=== PATIENT | male | born 1985 | race African-American/Black ===

== ENCOUNTER 2016-11-14 06:35 | Emergency (ER) | payer OTHER ==
[2016-11-14] MEDS ORDERED: Ondansetron ODT 4 MG TAB ONE (07:05)
--- NOTE | 2016-11-14 07:34 | ERRECORD ---
[facility] EMERGENCY RECORD HPI NAUSEA/VOMITING/DIARRHEA (07:10 [facility]) CHIEF COMPLAINT: Patient presents for evaluation of nausea, Patient presents for evaluation of vomiting, Patient presents for evaluation of diarrhea. HISTORIAN: History provided by patient, per patient ate chicken last night / with nausea/ vomiting x 2 / diarrhea after / some stomach cramps/ no fever or chills. LOCATION MALE: Unable to localize symptoms. QUALITY: Pain is dull in nature, described as cramping. SEVERITY: Maximum severity of symptoms mild, Currently symptoms are mild. TIME COURSE: Sudden onset of symptoms, Symptoms are improving. ASSOCIATED WITH MALE: No associated recent antibiotic use, No associated bright red blood per rectum, No associated chills, Associated with diarrhea, No associated fever, No associated flank pain, No associated genital discharge, No associated hematospermia, No associated hematuria, No associated loss of appetite, No associated melena, Associated with nausea, No associated inability to tolerate oral intake, Associated with vomiting. EXACERBATED BY: Patient's condition exacerbated by food. RELIEVED BY: Patient's condition relieved by nothing because patient has not tried anything for relief. ROS (07:12 [facility]) CONSTITUTIONAL: Negative constitutional review of systems, Historian denies chills, denies fever. ENT: Negative ears, nose, throat review of systems, Historian denies rhinorrhea, denies sore throat. CARDIOVASCULAR: Negative cardiovascular review of systems, Historian denies chest pain, denies palpitations. RESPIRATORY: Negative respiratory review of systems, Historian denies cough, denies shortness of breath. GI: Historian reports abdominal pain, reports diarrhea, reports nausea, reports vomiting. MUSCULOSKELETAL: Negative musculoskeletal review of systems, Historian denies back pain, denies fall, denies injury, denies neck pain. SKIN: Negative skin review of systems, Historian denies rash, denies skin changes. NEUROLOGIC: Negative neurologic review of systems, Historian denies headache. PAST MEDICAL HISTORY (06:44 [facility]) MEDICAL HISTORY: Tetanus not up to date, No past medical history. MALE SURGICAL HISTORY: Patient has no surgical history,. PSYCHIATRIC HISTORY: No previous psychiatric history. SOCIAL HISTORY: Lives at home, alone, Patient denies alcohol &a-1R&a+25V*p+0X*l2534A*c202B*c15G*c2P*p-0X&a-25V&a+1R Name: Yared Plasencia : 1985 M31 MedRec: [id number] AcctNum: [id number] Prepared: Jessica Nov 14, 2016 09:16 by Interface Page 1 of 3 pMD [facility] EMERGENCY RECORD use, Patient denies drug use, Patient has no smoking history . KNOWN ALLERGIES nka (Unconfirmed) No Known Allergies CURRENT MEDICATIONS (06:42 [facility]) None VITAL SIGNS (06:39 [facility]) VITAL SIGNS: BP: 122/79, Pulse: 57, Resp: 20, Temp: 97.5 (Oral), Pain: 9 (Constant), O2 sat: 99 on Room Air, Time: 11/14/2016 06:39. PHYSICAL EXAM (07:12 [facility]) CONSTITUTIONAL: Vital signs reviewed, Patient afebrile, Pulse normal, Blood pressure normal, Respiratory rate normal, Patient appears non toxic, Patient appears pain free, Patient alert and oriented to person, place and time. NECK: Neck exam normal, Neck exam included findings of normal range of motion, Trachea midline, no meningeal signs, no cervical adenopathy, no tenderness. RESPIRATORY CHEST: Respiratory and chest exam normal, Respiratory exam included findings of no respiratory distress, Breath sounds clear. CARDIOVASCULAR: Cardiovascular assessment normal, Cardiovascular exam included findings of heart rate regular rate and rhythm, Heart sounds normal. ABDOMEN MALE: Abdominal exam included findings of abdomen tender, to the epigastric region, mild intensity, Bowel sounds normal, no distension, no mass, no pulsatile masses, no peritoneal signs, no rigidity, no guarding, no rebound, Rovsing's sign absent. BACK: Back exam normal, Back exam included findings of normal inspection, range of motion normal, no tenderness. NEURO: Neuro exam normal, Neuro exam findings include patient oriented to person, place and time, Speech normal, Gait normal. SKIN: Skin exam normal, Skin exam included findings of skin warm, dry, and normal in color, no rash. MEDICATION ADMINISTRATION SUMMARY Drug Name: *Zofran ODT, Dose Ordered: 4 mg, Route: Oral, Status: Given, Time: 07:08 11/14/2016, *Additional information available in notes, Detailed record available in Medication Service section. DOCTOR NOTES (07:13 [facility]) RE-EVALUATION: The patient's condition has improved. TEXT: 31 yo M no PMHx with nvd after eating chicken given Zofran/ tolerates po &a-1R&a+25V*p+0X*[id number]*c202B*c15G*c2P*p-0X&a-25V&a+1R Name: Yared Plasencia : 1985 11 MedRec: [id number] AcctNum: [id number] Prepared: Jessica Nov 14, 2016 09:16 by Interface Page 2 of 3 pMD [facility] EMERGENCY RECORD d/c home with nausea meds/ follow up with pcp. PATIENT STATUS: Patient has improved since arrival to emergency department. PATIENT PLAN: The patient will be discharged, The patient will follow up with primary care physician. DATA REVIEWED: Discussed with family. PROBLEM LIST No recorded problems DIAGNOSIS (07:14 [facility]) FINAL: PRIMARY: viral gastroenteritis. PRESCRIPTION (07:15 [facility]) Zofran ODT: TABLET,DISINTEGRATING : 4 mg : ORAL : Quantity: 1 Unit: tab(s) Route: ORAL Schedule: every 8 hours PRN Dispense: 15 Unit: tab(s) May substitute. Refills: No Refills . NOTES: No Refills. DISPOSITION PATIENT: Disposition Type: Discharge, Disposition: *Discharge Home. (07:14 [facility]) Patient left the department. (07:30 [facility]) Garcia: [facility]AL[facility]=CHRISTOPHER Wilkins, Jade [facility]=MD Claudette, Indira [facility]=CHRISTOPHER Humphreys, Anitha &a-1R&a+25V*p+0X*[id number]*c202B*c15G*c2P*p-0X&a-25V&a+1R Name: Yared Plasencia : 1985 [facility] MedRec: [id number] AcctNum: [id number] Prepared: Jessica Nov 14, 2016 09:16 by Interface Page 3 of 3 pMD MTDD
--- NOTE | 2016-11-14 07:39 | PICIS ---
[facility] EMERGENCY RECORD TRIAGE (FriNov 14, 2016 06:41 [facility]) TRIAGE NOTES: Stomachache started yesterday morning. States vomiting 2x this AM, little bit of diarrhea. (FriNov 14, 2016 06:41 [facility]) PATIENT: NAME: Yared Plasencia, AGE: 31, GENDER: male, : Sat 1985, TIME OF GREET: FriNov 14, 2016 06:36, PREFERRED LANGUAGE: Singaporean, ETHNICITY: Not or , ECODE BILLING MAP: [facility] ER, SSN: [id number], Zip Code: [address], KG WEIGHT: 65.77, PHONE: , , , PERSON ID: [id number], PCP: None. (FriNov 14, 2016 06:41 [facility]) COMPLAINT: STOMACH PAIN. (FriNov 14, 2016 06:41 [facility]) ADMISSION: URGENCY: 3 Urgent, ADMISSION SOURCE: Home, TRANSPORT: CAR, BED: ER -02. (FriNov 14, 2016 06:41 [facility]) PAIN: Patient complains of pain described as, aching, cramping, on a scale 0-10 patient rates pain as 9, Location mid abdomen, Pain is constant, Onset was 11/13/2016, No aggravating factors, No relieving factors, Notes: Tried pepto tablet this morning around 5 am. (06:44 [facility]) SIRS SCORING: Heart Rate 55-109 (0), Temp range 96.8-101.1 (0), respiratory rate 12-24 (0), Mental Status altered: no (0). (06:44 [facility]) TRIAGE SCREENING: Patient denies suicidal ideation, Patient denies presence of domestic violence. (06:44 [facility]) TREATMENTS IN PROGRESS: Treatments given Prehospital: Pepto at 0500. (06:44 [facility]) PROVIDERS: TRIAGE NURSE: Jade Wilkins RN. (FriNov 14, 2016 06:41 [facility]) VITAL SIGNS: BP 122/79, Pulse 57, Resp 20, Temp 97.5, (Oral), Pain 9, (Constant), O2 Sat 99, on Room Air, Time 11/14/2016 06:39. (06:39 [facility]) PREVIOUS VISIT ALLERGIES: No Known Allergies. (FriNov 14, 2016 06:41 [facility]) No Known Allergies. (06:44 [facility]) KNOWN ALLERGIES nka (Unconfirmed) No Known Allergies CURRENT MEDICATIONS (06:42 [facility]) None VITAL SIGNS (06:39 [facility]) VITAL SIGNS: BP: 122/79, Pulse: 57, Resp: 20, Temp: 97.5 (Oral), Pain: 9 (Constant), O2 sat: 99 on Room Air, Time: 11/14/2016 06:39. NURSING ASSESSMENT: ABDOMEN (06:46 [facility]) CONSTITUTIONAL: Patient arrives ambulatory, Gait steady, History obtained from patient, Patient appears comfortable, Patient &a-1R&a+25V*p+0X*x1010Q*c202B*c15G*c2P*p-0X&a-25V&a+1R Name: Yared Plasencia : 1985 M31 MedRec: [id number] AcctNum: [id number] Prepared: FriNov 14, 2016 09:21 by Interface Page 1 of [address] [facility] EMERGENCY RECORD cooperative, Patient alert, Oriented to person, place and time, Skin warm, Skin dry, Skin normal in color, Mucous membranes pink, Mucous membranes moist, Patient complains of Stomachache, Stomachache started yesterday morning. States vomiting 2x this AM, "little bit of diarrhea" Denies ill contacts. ABDOMEN: Abdomen assessment findings include abdomen symmetrical, Abdomen soft, tender, diffusely, Associated with nausea, Associated with vomiting, history of vomiting, Number of times: 2, vomiting yellow fluid, Associated with diarrhea, watery, Number of episodes: 2. SAFETY: Side rails up, Cart/Stretcher in lowest position, Call light within reach, Hospital ID band on. NURSING PROCEDURE: DISCHARGE NOTE (07:28 [facility]) DISCHARGE: Patient discharged to home, ambulating without assistance, driving self, unaccompanied, Discharge instructions given to patient, Simple or moderate discharge teaching performed, by CHRISTOPHER Welsh, Patient treated and evaluated by physician. BELONGINGS: Belongings and valuables with patient upon arrival to the Emergency Department include:, Belongings and valuables with patient at time of discharge include:. SAFETY: Side rails up, Cart/Stretcher in lowest position, Call light within reach, Hospital ID band on. NURSING PROCEDURE: PO CHALLENGE (07:09 [facility]) PO CHALLENGE: Oral fluid challenge indicated for follow up on anti-emetics given, Oral challenge performed, patient given water, amount (mL) 300. FOLLOW-UP: After procedure, patient tolerated oral challenge. SAFETY: Side rails up, Cart/Stretcher in lowest position, Call light within reach, Hospital ID band on. MEDICATION ADMINISTRATION SUMMARY Drug Name: *Zofran ODT, Dose Ordered: 4 mg, Route: Oral, Status: Given, Time: 07:08 11/14/2016, *Additional information available in notes, Detailed record available in Medication Service section. MEDICATION SERVICE (07:08 [facility]) Zofran ODT: Order: Zofran ODT (ondansetron) - Dose: 4 mg : Oral Schedule: Now Notes: Read back and verified, Verbal Order Ordered by: Indira Wilkins MD Entered by: Anitha Humphreys RN [facility] Nov 14, 2016 07:08 Documented as given by: Anitha Humphreys RN [facility] Nov 14, 2016 07:08 Patient, Medication, Dose, Route and Time verified prior to administration. Amount given: 4 mg, Site: Medication administered S.L., Correct &a-1R&a+25V*p+0X*o8468Q*c202B*c15G*c2P*p-0X&a-25V&a+1R Name: Yared Plasencia : 1985 M31 MedRec: [id number] AcctNum: [id number] Prepared: Jessica Nov 14, 2016 09:21 by Interface Page 2 of [address] [facility] EMERGENCY RECORD patient, time, route, dose and medication confirmed prior to administration, Patient advised of actions and side-effects prior to administration, Allergies confirmed and medications reviewed prior to administration, Patient tolerated procedure well, Administered by CHRISTOPHER Welsh, Patient in position of comfort, Side rails up, Cart in lowest position, Call light in reach. HPI NAUSEA/VOMITING/DIARRHEA (07:10 [facility]) CHIEF COMPLAINT: Patient presents for evaluation of nausea, Patient presents for evaluation of vomiting, Patient presents for evaluation of diarrhea. HISTORIAN: History provided by patient, per patient ate chicken last night / with nausea/ vomiting x 2 / diarrhea after / some stomach cramps/ no fever or chills. LOCATION MALE: Unable to localize symptoms. QUALITY: Pain is dull in nature, described as cramping. SEVERITY: Maximum severity of symptoms mild, Currently symptoms are mild. TIME COURSE: Sudden onset of symptoms, Symptoms are improving. ASSOCIATED WITH MALE: No associated recent antibiotic use, No associated bright red blood per rectum, No associated chills, Associated with diarrhea, No associated fever, No associated flank pain, No associated genital discharge, No associated hematospermia, No associated hematuria, No associated loss of appetite, No associated melena, Associated with nausea, No associated inability to tolerate oral intake, Associated with vomiting. EXACERBATED BY: Patient's condition exacerbated by food. RELIEVED BY: Patient's condition relieved by nothing because patient has not tried anything for relief. ROS (07:12 [facility]) CONSTITUTIONAL: Negative constitutional review of systems, Historian denies chills, denies fever. ENT: Negative ears, nose, throat review of systems, Historian denies rhinorrhea, denies sore throat. CARDIOVASCULAR: Negative cardiovascular review of systems, Historian denies chest pain, denies palpitations. RESPIRATORY: Negative respiratory review of systems, Historian denies cough, denies shortness of breath. GI: Historian reports abdominal pain, reports diarrhea, reports nausea, reports vomiting. MUSCULOSKELETAL: Negative musculoskeletal review of systems, Historian denies back pain, denies fall, denies injury, denies neck pain. SKIN: Negative skin review of systems, Historian denies rash, denies skin changes. NEUROLOGIC: Negative neurologic review of systems, Historian denies headache. &a-1R&a+25V*p+0X*y2840P*c202B*c15G*c2P*p-0X&a-25V&a+1R Name: Yared Plasencia : 1985 M31 MedRec: [id number] AcctNum: [id number] Prepared: Jessica Nov 14, 2016 09:21 by Interface Page 3 of [address] [facility] EMERGENCY RECORD PAST MEDICAL HISTORY (06:44 [facility]) MEDICAL HISTORY: Tetanus not up to date, No past medical history. MALE SURGICAL HISTORY: Patient has no surgical history,. PSYCHIATRIC HISTORY: No previous psychiatric history. SOCIAL HISTORY: Lives at home, alone, Patient denies alcohol use, Patient denies drug use, Patient has no smoking history . PHYSICAL EXAM (07:12 [facility]) CONSTITUTIONAL: Vital signs reviewed, Patient afebrile, Pulse normal, Blood pressure normal, Respiratory rate normal, Patient appears non toxic, Patient appears pain free, Patient alert and oriented to person, place and time. NECK: Neck exam normal, Neck exam included findings of normal range of motion, Trachea midline, no meningeal signs, no cervical adenopathy, no tenderness. RESPIRATORY CHEST: Respiratory and chest exam normal, Respiratory exam included findings of no respiratory distress, Breath sounds clear. CARDIOVASCULAR: Cardiovascular assessment normal, Cardiovascular exam included findings of heart rate regular rate and rhythm, Heart sounds normal. ABDOMEN MALE: Abdominal exam included findings of abdomen tender, to the epigastric region, mild intensity, Bowel sounds normal, no distension, no mass, no pulsatile masses, no peritoneal signs, no rigidity, no guarding, no rebound, Rovsing's sign absent. BACK: Back exam normal, Back exam included findings of normal inspection, range of motion normal, no tenderness. NEURO: Neuro exam normal, Neuro exam findings include patient oriented to person, place and time, Speech normal, Gait normal. SKIN: Skin exam normal, Skin exam included findings of skin warm, dry, and normal in color, no rash. EVENTS TRANSFER: Triage to Emergency Emergency Room -02. (FriNov 14, 2016 06:41 [facility]) Removed from Emergency Emergency Room -02. (07:30 [facility]) DOCTOR NOTES (07:13 [facility]) RE-EVALUATION: The patient's condition has improved. TEXT: 31 yo M no PMHx with nvd after eating chicken given Zofran/ tolerates po d/c home with nausea meds/ follow up with pcp. PATIENT STATUS: Patient has improved since arrival to emergency department. PATIENT PLAN: The patient will be discharged, The patient will &a-1R&a+25V*p+0X*h0475W*c202B*c15G*c2P*p-0X&a-25V&a+1R Name: Yared Plasencia : 1985 M31 MedRec: [id number] AcctNum: [id number] Prepared: FriNov 14, 2016 09:21 by Interface Page 4 of [address] [facility] EMERGENCY RECORD follow up with primary care physician. DATA REVIEWED: Discussed with family. PROBLEM LIST No recorded problems DIAGNOSIS (07:14 [facility]) FINAL: PRIMARY: viral gastroenteritis. DISPOSITION PATIENT: Disposition Type: Discharge, Disposition: *Discharge Home. (07:14 [facility]) Patient left the department. (07:30 [facility]) INSTRUCTION (07:16 [facility]) DISCHARGE: VIRAL GASTROENT 8 YR ADULT. SPECIAL: take nausea medications as needed increase fluid intake Follow-up with your primary physician as needed. PRESCRIPTION (07:15 [facility]) Zofran ODT: TABLET,DISINTEGRATING : 4 mg : ORAL : Quantity: 1 Unit: tab(s) Route: ORAL Schedule: every 8 hours PRN Dispense: 15 Unit: tab(s) May substitute. Refills: No Refills . NOTES: No Refills. IMAGING *DISCHARGE INSTRUCTIONS RECEIPT: Image captured from scanner. (07:31 [facility]) *SUPPLY CHARGE SHEET: Image captured from scanner. (07:32 [facility]) ADMIN (09:12 [facility]) DIGITAL SIGNATURE: MD Claudette, Indira. Garcia: [facility]=CHRISTOPHER Wilkins, Jade [facility]=MD Claudette, Indira [facility]=CHRISTOPHER Humphreys, Anitha &a-1R&a+25V*p+0X*m8970Z*c202B*c15G*c2P*p-0X&a-25V&a+1R Name: Yared Plasencia : 1985 M31 MedRec: [id number] AcctNum: [id number] Prepared: FriNov 14, 2016 09:21 by Interface Page 5 of 5 pMD MTDD
== END 2016-11-14 07:30 | disposition home or self-care (01) ==
LOC: NAV ERS 06:35
DX: A08.4 Viral intestinal infection, unspecified (principal)
CPT/HCPCS: 99283; Q0162

== ENCOUNTER 2016-11-18 09:10 | Emergency (ER) | payer OTHER ==
[2016-11-18] MEDS ORDERED: Ibuprofen 200 MG TAB ONE (09:40)
[2016-11-18] MEDS ORDERED: Acetaminophen 325 MG TAB ONE (09:40)
[2016-11-18] MEDS ORDERED: Amoxicillin/Potassium Clav 875 MG TAB ONE (10:17)
--- NOTE | 2016-11-18 13:18 | PICIS ---
[facility] EMERGENCY RECORD TRIAGE (FriNov 18, 2016 09:15 MSPE) TRIAGE NOTES: chills, cough, congestion; onset two days ago. (FriNov 18, 2016 09:15 MSPE) PATIENT: NAME: Yared Plasencia, AGE: 31, GENDER: male, : Sat 1985, TIME OF GREET: FriNov 18, 2016 09:11, PREFERRED LANGUAGE: Albanian, ETHNICITY: Not or , ECODE BILLING MAP: [facility], SSN: [id number], Zip Code: [address], KG WEIGHT: 66.22, PHONE: , , , PERSON ID: [id number], PCP: none. (FriNov 18, 2016 09:15 MSPE) COMPLAINT: COUGH,CONGESTION. (FriNov 18, 2016 09:15 MSPE) ADMISSION: URGENCY: 4 Non Urgent, ADMISSION SOURCE: Home, TRANSPORT: CAR, BED: ER -03. (FriNov 18, 2016 09:15 MSPE) SIRS SCORING: Heart Rate 55-109 (0), Temp range 96.8-101.1 (0), respiratory rate 12-24 (0), Mental Status altered: no (0), Total SIRS Score 0. (09:18 MSPE) TREATMENTS IN PROGRESS: Treatments given Prehospital: none. (09:18 MSPE) PROVIDERS: TRIAGE NURSE: Ileana Espinosa RN. (FriNov 18, 2016 09:15 MSPE) VITAL SIGNS: BP 118/68, Pulse 99, Resp 18, Temp 100.5, (Oral), Pain 7, O2 Sat 96, on Room Air, Time 11/18/2016 09:15. (09:15 MSPE) PREVIOUS VISIT ALLERGIES: No Known Allergies. (FriNov 18, 2016 09:15 MSPE) No Known Allergies. (09:18 MSPE) KNOWN ALLERGIES nka (Unconfirmed) No Known Allergies (Unconfirmed) No Known Drug Allergies CURRENT MEDICATIONS (09:15 MSPE) None VITAL SIGNS VITAL SIGNS: BP: 118/68, Pulse: 99, Resp: 18, Temp: 100.5 (Oral), Pain: 7, O2 sat: 96 on Room Air, Time: 11/18/2016 09:15. (09:15 MSPE) BP: 122/75, Pulse: 93, Resp: 18, Temp: 98.9 (Oral), Pain: 6, O2 sat: 96 on Room Air, Time: 11/18/2016 10:21. (10:21 MSPE) NURSING ASSESSMENT: RESPIRATORY /CHEST (09:19 MSPE) CONSTITUTIONAL: Patient arrives ambulatory, Gait steady, History obtained from patient, Patient appears, generally ill, Patient cooperative, Patient alert. PAIN: aching pain, body aches. RESPIRATORY/CHEST: Respiratory assessment findings include respiratory effort easy, Respirations regular, Conversing normally, Associated with cough, productive of, green sputum. ENT: Discharge, watery, Notes: sts &a-1R&a+25V*p+0X*[id number]*c202B*c15G*c2P*p-0X&a-25V&a+1R Name: Yared Plasencia : 1985 M31 MedRec: [id number] AcctNum: [id number] Prepared: FriNov 18, 2016 12:25 by Interface Page 1 of 6 pMD [facility] EMERGENCY RECORD vomited x 2 since onset of sx; slight sore throat. NURSING PROCEDURE: DISCHARGE NOTE (10:25 MSPE) DISCHARGE: Patient discharged to home, ambulating without assistance, family driving, Summary of Care printed/ provided, Discharge instructions given to patient, Simple or moderate discharge teaching performed, Prescriptions given and instructions on side effects given, Above person(s) verbalized understanding of discharge instructions and follow-up care, Patient treated and evaluated by physician. BELONGINGS: Belongings remain with patient. NOTES: Notes: Tolerating PO fluids at time of DC. ORDER DETAILS Order Name: Influenza A&B Ag Screen, Status: Active, Time: 09:27 11/18/2016, User: ANA, - Ordered for: MD Marcos Andrea, - Entered by: CHRISTOPHER Espinosa Marilyn - FriNov 18, 2016 09:27, - Quantity: 1. MEDICATION ADMINISTRATION SUMMARY Drug Name: Augmentin, Dose Ordered: 875 mg, Route: Oral, Status: Given, Time: 10:20 11/18/2016, Drug Name: ibuprofen, Dose Ordered: 600 mg, Route: Oral, Status: Given, Time: 09:42 11/18/2016, Drug Name: Tylenol, Dose Ordered: 650 mg, Route: Oral, Status: Given, Time: 09:41 11/18/2016, Detailed record available in Medication Service section. MEDICATION SERVICE Augmentin: Order: Augmentin (amoxicillin trihydrate/potassium clavulanate) - Dose: 875 mg : Oral Ordered by: Gilbert Marcos MD Entered by: Gilbert Marcos MD FriNov 18, 2016 10:08 , Acknowledged by: Ileana Espinosa RN FriNov 18, 2016 10:16 Documented as given by: Ileana Espinosa RN FriNov 18, 2016 10:20 Patient, Medication, Dose, Route and Time verified prior to administration. Amount given: 1 tab, Site: Medication administered P.O., Patient appears Awake and alert- acceptable, Correct patient, time, route, dose and medication confirmed prior to administration, Patient advised of actions and side-effects prior to administration, Allergies confirmed and medications reviewed prior to administration, Patient in position of comfort, Side rails up, Cart in lowest position. ibuprofen: Order: ibuprofen - Dose: 600 mg : Oral Ordered by: Gilbert Marcos MD Entered by: Gilbert Marcos MD FriNov 18, 2016 09:31 , &a-1R&a+25V*p+0X*h2371R*c202B*c15G*c2P*p-0X&a-25V&a+1R Name: Yared Plasencia : 1985 M31 MedRec: [id number] AcctNum: [id number] Prepared: FriNov 18, 2016 12:25 by Interface Page 2 of 6 pMD [facility] EM[facility]GENC[facility] RECORD Acknowledged by: Ileana Espinosa RN FriNov 18, 2016 09:40 Documented as given by: Ileana Espinosa RN FriNov 18, 2016 09:42 Patient, Medication, Dose, Route and Time verified prior to administration. Amount given: 600mg, Site: Medication administered P.O., Patient appears Awake and alert- acceptable, Correct patient, time, route, dose and medication confirmed prior to administration, Patient advised of actions and side-effects prior to administration, Allergies confirmed and medications reviewed prior to administration, Patient in position of comfort, Side rails up, Cart in lowest position. Tylenol: Order: Tylenol (acetaminophen) - Dose: 650 mg : Oral Ordered by: Gilbert Marcos MD Entered by: Gilbert Marcos MD FriNov 18, 2016 09:31 , Acknowledged by: Ileana Espinosa RN FriNov 18, 2016 09:40 Documented as given by: Ileana Espinosa RN FriNov 18, 2016 09:41 Patient, Medication, Dose, Route and Time verified prior to administration. Amount given: 650mg, Site: Medication administered P.O., Patient appears Awake and alert- acceptable, Correct patient, time, route, dose and medication confirmed prior to administration, Patient advised of actions and side-effects prior to administration, Allergies confirmed and medications reviewed prior to administration, Patient in position of comfort, Side rails up, Cart in lowest position. HPI FEVER (09:31 AGRE) CHIEF COMPLAINT: Patient presents for evaluation of fever. HISTORIAN: History provided by patient, FEVER, CHILLS, COUGH PRODUCTIVE OF GREEN PHLEGM FOR 2 DAYS. BODY ACHES. NO ELLIS. HAS SORE THROAT ONLY WITH COUGHING. NO CHEST PAIN OR SOB. DENIES SICK CONTACTS. LOCATION: No localizing symptoms. QUALITY: Pain is dull in nature, described as aching, described as throbbing. SEVERITY: Maximum severity of symptoms moderate, Currently symptoms are moderate. TIME COURSE: Sudden onset of symptoms, Symptoms are worsening. ASSOCIATED WITH: No associated abdominal pain, Associated with chills, Associated with cough, No associated diarrhea, No associated headache, No associated infectious exposure, Associated with myalgias, Associated with sore throat, Associated with upper respiratory infection, No associated urinary tract infection signs or symptoms, No associated vomiting. EXACERBATED BY: Patient's condition exacerbated by nothing. RELIEVED BY: Patient's condition relieved by nothing. ROS (09:33 AGRE) CONSTITUTIONAL: Historian reports chills, reports &a-1R&a+25V*p+0X*e1023N*c202B*c15G*c2P*p-0X&a-25V&a+1R Name: Yared Plasencia : 1985 M31 MedRec: [id number] AcctNum: [id number] Prepared: FriNov 18, 2016 12:25 by Interface Page 3 of 6 pMD [facility] EMERG[facility] RECORD fever, reports malaise, denies weakness. EYES: Historian denies eye redness, denies vision changes. ENT: Historian reports rhinorrhea, reports sore throat, denies stridor. CARDIOVASCULAR: Historian denies chest pain, denies diaphoresis. RESPIRATORY: Historian reports cough, denies shortness of breath, reports sputum, denies stridor, denies wheezing. GI: Historian denies abdominal pain, denies nausea, denies vomiting. MUSCULOSKELETAL: Historian denies back pain, denies neck pain. SKIN: Historian denies skin changes, denies skin lesions. NEUROLOGIC: Historian denies confusion, denies dizziness, denies focal weakness, denies headache. HEMO/LYMPHATIC: Normal hematologic/lymphatic system review, Historian denies petechiae. PSYCHIATRIC: Negative psychiatric review of systems, Historian denies anxiety. PAST MEDICAL HISTORY (09:18 MSPE) MEDICAL HISTORY: No past medical history, Flu vaccine not up to date, Tetanus not up to date, Pneumococcal vaccine not up to date. MALE SURGICAL HISTORY: Patient has no surgical history. PSYCHIATRIC HISTORY: No previous psychiatric history. SOCIAL HISTORY: Patient denies alcohol use, Patient denies drug use, Patient has no smoking history. PHYSICAL EXAM (09:34 AGRE) CONSTITUTIONAL: Vital signs reviewed, Patient febrile, Respiratory rate normal, Patient appears non toxic, Patient appears pain free, Patient alert and oriented to person, place and time, NURSES NOTES REVIEWED. HEAD: Head exam included findings of head atraumatic, normocephalic. EYES: Pupils equally round and reactive to light, Eye exam included findings of eyelids normal to inspection, Extraocular muscles intact, Conjunctiva normal, Sclera normal. ENT: Ear exam included findings of, left external ear normal, right external ear normal, tympanic membrane with bulging on the left, tympanic membrane injected on the left, tympanic membrane injected on the right, Nose exam normal, Pharynx, injected bilaterally, no swelling, symmetrical, Uvula exam normal, midline, no edema, Tonsil exam normal, not enlarged, no exudates, Mouth exam normal. NECK: Neck exam normal, Neck exam included findings of normal range of motion, no meningeal signs, Cervical adenopathy, diffuse, tender. RESPIRATORY CHEST: Respiratory and chest exam normal, Respiratory exam included findings of no respiratory distress, Breath sounds &a-1R&a+25V*p+0X*e6316C*c202B*c15G*c2P*p-0X&a-25V&a+1R Name: Yared Plasencia : 1985 M31 MedRec: [id number] AcctNum: [id number] Prepared: FriNov 18, 2016 12:25 by Interface Page 4 of 6 pMD [facility] EMERGENC[facility] RECORD clear, No wheezing, No rales, No rhonchi, Breath sounds not diminished. CARDIOVASCULAR: Cardiovascular exam included findings of heart rate regular rate and rhythm, Heart sounds normal, normal S1, normal S2, no murmurs, no rub, no gallop. ABDOMEN MALE: Abdominal exam normal, Abdominal exam included findings of abdomen nontender, Bowel sounds normal, Liver normal, Spleen normal, no distension, no mass. BACK: Back exam normal, Back exam included findings of normal inspection, range of motion normal. UPPER EXTREMITY: Upper extremity exam included findings of inspection normal, Range of motion normal. LOWER EXTREMITY: Lower extremity exam included findings of inspection normal, Range of motion normal. NEURO: Neuro exam normal, Neuro exam findings include patient oriented to person, place and time, Speech normal, Gait normal, Memory normal, Cranial nerves intact, no focal motor deficits. SKIN: Skin exam normal, Skin exam included findings of skin warm, dry, and normal in color. LYMPHATIC: Lymphatic exam normal, Lymphatic exam included findings of cervical nodes normal. PSYCHIATRIC: Psychiatric exam normal, Normal affect. LAB INTERPRETATION (12:19 AGRE) INTERPRETATION: Influenza negative. EVENTS TRANSFER: Triage to Emergency Emergency Room -03. (09:15 MSPE) Removed from Emergency Emergency Room -03. (10:28 MSPE) DOCTOR NOTES (12:19 AGRE) TEXT: DISCUSSED WITH PATIENT FINDINGS ON EXAM, RESULTS OF ED TEST, MANAGEMENT OF HIS INFECTION, CONGESTION AND FEVER. NEED FOR FOLLOW UP. HE EXPRESSED UNDERSTANDING AND AGREEMENT WITH THIS PLAN. PATIENT STATUS: Patient has improved since arrival to emergency department. PATIENT PLAN: The patient will be discharged. DATA REVIEWED: Lab data reviewed. PROBLEM LIST No recorded problems DIAGNOSIS (10:03 AGRE) FINAL: PRIMARY: ACUTE SINUSITIS UNSPECIFIED, ADDITIONAL: Fever, Otitis Media - Bilateral. DISPOSITION PATIENT: Disposition Type: Discharge, Disposition: *Discharge Home, Condition: Improved. (10:03 AGRE) &a-1R&a+25V*p+0X*u0862H*c202B*c15G*c2P*p-0X&a-25V&a+1R Name: Yared Plasencia : 1985 M31 MedRec: [id number] AcctNum: [id number] Prepared: FriNov 18, 2016 12:25 by Interface Page 5 of 6 pMD [facility] EMERGENCY RECORD Patient left the department. (10:28 MSPE) INSTRUCTION (10:05 AGRE) DISCHARGE: EARACHE WITH INFECTION OTITIS MEDIA ABX TX ADULT, SINUSITIS, ABX TX, FEVER CONTROL (ADULT). SPECIAL: START YOUR ANTIBIOTICS TODAY. TAKE TYLENOL 650 MG EVERY 4 HOURS AND MOTRIN 600 MG EVERY 6 HOURS TO CONTROL YOUR FEVER. TAKE NYQUIL NIGHT TIME COUGH AND COLD PREPARATION TO CONTROL COUGH AND CONGESTION AT NIGHT TIME. TAKE LOTS OF FLUIDS. SEE YOUR PHYSICIAN FOR RECHECK IN 3 - 4 DAYS. SEE A PHYSICIAN SOONER IF WORSENING OR IF NEW SYMPTOMS DEVELOP. PRESCRIPTION (10:03 AGRE) Augmentin: TABLET : 875 mg-125 mg : ORAL : Quantity: 1 Unit: tab(s) Route: ORAL Schedule: every 12 hours Dispense: 20 Unit: tab(s) May substitute. Refills: No Refills . NOTES: No Refills. IMAGING (10:27 MSPE) *DISCHARGE INSTRUCTIONS RECEIPT: Image captured from scanner. *SUPPLY CHARGE SHEET: Image captured from scanner. ADMIN (12:20 [facility]) DIGITAL SIGNATURE: MD Marcos Andrea. Garcia: AGRE=MD Marcos Andrea MSPE=CHRISTOPHER Espinosa, Ileana &a-1R&a+25V*p+0X*x3395I*c202B*c15G*c2P*p-0X&a-25V&a+1R Name: Yared Plasencia : 1985 M31 MedRec: [id number] AcctNum: [id number] Prepared: FriNov 18, 2016 12:25 by Interface Page 6 of 6 pMD [facility]TDD
== END 2016-11-18 10:25 | disposition home or self-care (01) ==
LOC: NAV ERS 09:10
DX: J01.90 Acute sinusitis, unspecified (principal); H66.93 Otitis media, unspecified, bilateral
CPT/HCPCS: 99283

== ENCOUNTER 2019-09-24 13:10 | Emergency (ER) | payer OTHER, SELFPAY | END 2019-09-24 13:45 | disposition home or self-care (01) | LOC: NAV ERS 13:10 | DX: J06.9 Acute upper respiratory infection, unspecified (principal) | CPT/HCPCS: 99283 ==

== ENCOUNTER 2020-11-13 08:48 | Emergency (ER) | payer OTHER | END 2020-11-13 09:30 | disposition home or self-care (01) | LOC: NAV ERS 08:48 | DX: S29.011A Strain of muscle and tendon of front wall of thorax, initial encounter (principal); X50.0XXA Overexertion from strenuous movement or load, initial encounter | CPT/HCPCS: 99284 ==

== ENCOUNTER 2024-06-22 22:20 | Emergency (ER) | payer BC, SELFPAY | END 2024-06-22 23:16 | disposition home or self-care (01) | LOC: NAV ERS 22:20 | DX: M25.511 Pain in right shoulder (principal) | CPT/HCPCS: 99283 ==